=== PATIENT | female | born 1965 | race Caucasian/White ===

== ENCOUNTER 2016-04-05 12:24 | Emergency (ER) | payer OTHER ==
[~2016-04-05] VITALS: Ht 167.6 cm; Wt 68.2 kg
[~2016-04-05 12:24] MED LIST: ACET325T51 PO; ALBU8.5H2 INHALATION; BUSP7.5T5 PO; CLON0.5T PO; ESTR42.52 VG; FLUT9.9S NS; FOLI1TAB18 PO; GABA800T2 PO; HYDR-656 PO; HYDR15SO8 PO; IPRA4AER IH; LEVO750T39 PO; MIRA25TA PO; PANT40TA3 PO; PARO20TA57 PO; PRE20 PO
[2016-04-05 12:26] VITALS: BP 96/63; PULSE 89; RESP 20; O2SAT 95
--- NOTE | 2016-04-05 12:35 | ED.REPORT ---
HPI-Overdose/Alcohol Tox Peds Date of Service Apr 05, 2016 ED Provider: Catrachito Cho MD Pt is a 50 year old female with a hx of depression and anxiety presenting to the ED requesting to go to [facility]. She reports that she had 3 alcoholic beverages consisting of vodka today, and last drank 1 hour ago. She states that she usually drinks 3 alcoholic beverages per day. She denies previous DTs, but does report some withdrawal symptoms in the past. She denies any suicidal or homicidal ideation. Nursing Notes Stated Complaint: ALCOHOL DETOX Chief Complaint: Substance Abuse Nursing Notes Reviewed: Yes Allergies: Coded Allergies: shellfish derived (Verified Allergy, Mild, 04/05/16) Scheduled Albuterol HFA (Proair HFA) 8.5 Gm Hfa.aer.ad 2 PUFFS INHALATION Q4H Albuterol/Ipratropium (Combivent Respimat Inhal [place]) 120 Spr/4 Gm Inhaler 1 PUFF IH QID Buspirone (Buspirone) 7.5 Mg Tablet 7.5 MG PO DAILY Estradiol (Estrace) 42.5 Gm Cream.appl 1 G VG UD Folic Acid (Folic Acid) 1 Mg Tablet 1 MG PO DAILY Gabapentin (Gabapentin) 800 Mg Tablet 800 MG PO TID Imipramine HCl (Imipramine HCl) 25 Mg Tab 25 MG PO BID Mirabegron ER (Myrbetriq) 25 Mg Tablet 25 MG PO DAILY Pantoprazole DR (Pantoprazole DR) 40 Mg Tablet.dr 40 MG PO DAILY Paroxetine (Paxil) 20 Mg Tablet 40 MG PO MORNING Trazodone (Trazodone) 50 Mg Tablet 50-100 MG PO HS Venlafaxine ER (Venlafaxine ER) 75 Mg Cap.er.24h 75 MG PO MORNING Scheduled PRN Acetaminophen (Acetaminophen) 325 Mg Tablet 325 MG PO Q4H PRN PRN For Fever Clonazepam (Clonazepam) 1 Mg Tablet 1.5 MG PO BID PRN PRN For Anxiety Miscellaneous Medications Fluticasone Propionate (Flonase Allergy Relief) 50 Mcg/Actuation [place].susp 9.9 ML NS General Time Seen by Provider: 12:44 Chief Complaint Other (Requesting Detox) Hx Obtained from: Patient Arrived by: Walk-in Onset Occurred: Just prior to arrival Symptom Duration: Since onset Severity: Current: No pain currently Severity: Maximum: No pain Related History: Reports: Alcoholism, Anxiety, Depression, Detox treatment, EtOH withdrawal Recent Healthcare: No recent doctor visit, No recent hospitalization Similar Sx Previous: No Risk-Overdose/Alcohol Tox Peds )( Suicide Risk Stratification : Alcohol use: Substance abuse RF Statements: Risk factors reviewed Past Medical History Past Medical History Alcohol abuse, 3 drinks per day Anxiety Reports: Depression Past Surgical History denies Smoking History Current Every Day Smoker Ambulatory Status Ambulatory Status: Independent Review of Systems Respiratory: Denies: Irregular breathing, Non-productive cough, Shortness of breath, Wheezing GI: Denies: Vomiting Psychiatric: Denies: Homicidal ideation, Suicidal ideation Complete sys rev & neg: except as marked. Physical Exam Initial Vital Signs Vital Signs (First) Date Time Temp Pulse Resp B/P Pulse Ox O2 Delivery O2 Flow Rate FiO2 04/05/16 12:26 36.3 89 20 96/63 95 04/05/16 15:36 Room Air Initial VS: Reviewed Head / Eyes: Atraumatic, Normocephalic, PERRL ENT: Mucous membranes moist, Conjunctiva normal, No scleral icterus Extremities: Vascular intact, Neuro intact, No swelling, No tenderness Skin: Warm, Dry, No cyanosis General / Constitutional: Awake, Alert, No apparent distress, Well appearing, Well developed, Well hydrated, Well nourished Respiratory / Chest: Atraumatic, Breath sounds NL, Breath sounds = bilat, No respiratory distress, No grunting, No rales, No rhonchi, No wheezing Abdomen: Soft, Non-tender, No guarding, No rebound, BS normoactive, No distention Neurologic: Orientation NL for age, Speech NL for age, No motor deficits, No sensory deficits Psychiatric: Not suicidal, Not homicidal Lower Extremity / Pelvis / MS: No edema Interpretation & Diagnostics Lab Results Interpretation Test 04/05/16 14:18 Hold Urine Received (Received) Re-Eval/Medical Decision Med Decision/Clinical Course 50-year-old female history of alcohol abuse presenting requesting crisis respite. Last alcohol earlier today. Her breathalyzer is 140. Her urine tox is positive for marijuana, tricyclic antidepressants. She has no history of withdrawal seizures or DTs. She does have a history of alcohol withdrawal. She has been medically cleared for crisis respite. She was transferred to their facility. She was given an Ativan taper. Return precautions given. Re-Evaluation/Progress : Time of Eval: 15:00 Patient Status: Condition improved Re-Evaluation/Progress Note: Discussed plan for discharge and follow up with Crisis. Pt understands and agrees. Counseled Regarding: Diagnosis, Lab results, Need for follow-up, When/why to return to ED Discharge & Departure Clinical Impression Primary Impression: Alcohol abuse Disposition: Home Discharge Condition All VS Reviewed: Yes Condition: Improved Additional Instructions: You have been accepted at [facility] and have been sent home with Ativan. Taper to decrease your risk of withdrawal symptoms. Return to the ER with any new or worsening symptoms such as withdrawal seizures or delirium. Referrals: MALIK FARFAN DO (PCP) Scribe Attestation Portions of this note were transcribed by Hedy. I, Dr. Cho personally performed the history, physical exam and medical decision-making; I reviewed and confirmed the accuracy of the information in the transcribed note. Signed by: Louis Babb, 04/05/2016 and [id number]. copies to: MALIK FARFAN Ben M MD Apr 05, 2016 12:35 HEDY SULTANA Apr 05, 2016 12:46
[2016-04-05] MEDS ORDERED: _LORazepam 2 MG Tablet PO SCH (13:15)
[2016-04-05] MEDS ORDERED: TRAZ-115 PO (14:16)
[2016-04-05] MEDS ORDERED: KLO1T PO (14:16)
[2016-04-05] MEDS ORDERED: IMP25T PO (14:16)
[2016-04-05] MEDS ORDERED: VENL75CA95 PO (14:18)
[2016-04-05 15:36] VITALS: BP 81/56; PULSE 101; O2SAT 97
== END 2016-04-05 15:38 | disposition home or self-care (01) ==
LOC: SED 12:24
DX: F10.129 Alcohol abuse with intoxication, unspecified (principal); F17.200 Nicotine dependence, unspecified, uncomplicated; Z91.013 Allergy to seafood

== ENCOUNTER 2016-04-17 20:35 | Emergency (ER) | payer OTHER ==
[~2016-04-17] VITALS: Ht 167.6 cm; Wt 70.5 kg
[~2016-04-17 20:35] MED LIST changes: -CLON0.5T PO; -HYDR-656 PO; -HYDR15SO8 PO; +IMP25T PO; +KLO1T PO; -LEVO750T39 PO; -PRE20 PO; +TRAZ-115 PO; +VENL75CA95 PO
[2016-04-17 20:52] VITALS: BP 112/67; PULSE 92; RESP 16; O2SAT 97
--- NOTE | 2016-04-17 21:10 | ED.REPORT ---
HPI-General Illness Date of Service Apr 17, 2016 ED Provider: Dr. Ming Butler D.O. A 50 year old female with a history of COPD, depression, anxiety, and alcohol abuse presents to the ED requesting medical clearance for [facility]. The patient has a bed at [facility] at 0100 and requests medication to help with alcohol withdrawal. She denies visual or auditory hallucinations. The patient has not been eating regular meals. Her last alcoholic drink was vodka was this afternoon. She was in the ED 1.5 weeks ago with a similar request. Nursing Notes Stated Complaint: MEDICAL CLEARANCE FOR CRISIS CENTER Chief Complaint: Substance Abuse Nursing Notes Reviewed: Yes Allergies: Coded Allergies: shellfish derived (Verified Allergy, Mild, 04/17/16) Scheduled Albuterol HFA (Proair HFA) 8.5 Gm Hfa.aer.ad 2 PUFFS INHALATION Q4H Albuterol/Ipratropium (Combivent Respimat Inhal [place]) 120 Spr/4 Gm Inhaler 1 PUFF IH QID Buspirone (Buspirone) 7.5 Mg Tablet 7.5 MG PO DAILY Estradiol (Estrace) 42.5 Gm Cream.appl 1 G VG UD Folic Acid (Folic Acid) 1 Mg Tablet 1 MG PO DAILY Gabapentin (Gabapentin) 800 Mg Tablet 800 MG PO TID Imipramine HCl (Imipramine HCl) 25 Mg Tab 25 MG PO BID Mirabegron ER (Myrbetriq) 25 Mg Tablet 25 MG PO DAILY Pantoprazole DR (Pantoprazole DR) 40 Mg Tablet.dr 40 MG PO DAILY Paroxetine (Paxil) 20 Mg Tablet 40 MG PO MORNING Trazodone (Trazodone) 50 Mg Tablet 50-100 MG PO HS Venlafaxine ER (Venlafaxine ER) 75 Mg Cap.er.24h 75 MG PO MORNING Scheduled PRN Acetaminophen (Acetaminophen) 325 Mg Tablet 325 MG PO Q4H PRN PRN For Fever Clonazepam (Clonazepam) 1 Mg Tablet 1.5 MG PO BID PRN PRN For Anxiety Miscellaneous Medications Fluticasone Propionate (Flonase Allergy Relief) 50 Mcg/Actuation [place].susp 9.9 ML NS General Time Seen by MD: 21:10 Chief Complaint Other (Medical Clearance for Detox) Hx Obtained From: Patient Arrived By: Walk-in Sudden in Onset?: No Onset Occurred: Onset unknown Context of Onset: EtOH use Symptom Duration: Since onset Severity: Current: No pain currently Severity: Maximum: No pain Associated with: Denies: Fever Pertinent Negative: Relieved by nothing Context Related History: Reports COPD, Reports Psychiatric history Recent Healthcare: Recent doctor visit Similar Sx Previous: Yes Past Medical History Past Medical History Anxiety Depression Alcohol abuse Reports: COPD Past Surgical History Reports: Cholecystectomy, Hysterectomy Reports: Gastric bypass Smoking History Current Every Day Smoker Social History Alcohol abuse Drug Use: Denies drug use Ambulatory Status Independent Review of Systems + Request for Detox Medical Clearance, loss of appetite Full Review of Systems Constitutional: Denies: Fever Respiratory: Denies: Non-productive cough, Shortness of breath GI: Denies: Diarrhea, Vomiting Psychiatric: Denies: Hallucinations, auditory, Hallucinations, visual Complete sys rev & neg: except as marked. Physical Exam Vital Signs Vital Signs Date Time Temp Pulse Resp B/P Pulse Ox O2 Delivery O2 Flow Rate FiO2 04/17/16 20:52 37.1 92 16 112/67 97 Room Air Initial VS: Reviewed Head / Eyes: Atraumatic, Normocephalic Neck: Supple, Full range of motion Respiratory: Breath sounds normal, Clear to auscultation, No respiratory distress Cardiovascular: Regular rate & rhythm, Heart sounds normal Abdomen / GI: Soft, Non-tender Skin: Warm, Dry General/Constitutional: Awake, Alert Head / Eyes: Atraumatic, Normocephalic, EOMI Neurologic: Oriented X3, Speech NL Movement Abnormality: Positive: Tremor (Mild, fingertips) Psychiatric: Affect NL, Mood NL, No hallucinations Re-Eval/Medical Decision Source of Hx: Old records Time of Eval: 21:28 Patient Status: Condition improved Re-Evaluation/Progress Note: Discussed with patient diagnosis and plan for discharge to sobering services. Follow-up and return to the ER instructions given. Patient agrees with plan for care and all questions were addressed. Counseled Regarding: Diagnosis, Need for follow-up, When/why to return to ED Discharge & Departure Primary Impression: Alcohol abuse Disposition: Home Discharge Condition All VS Reviewed: Yes Condition: Stable Patient Instructions: Abuse of Alcohol (ED) Additional Instructions: Thank you for entrusting us with your care. Proceed straight to sobering services. Use the Ativan taper as directed. Never drink alcohol while taking Ativan. Call your primary care provider tomorrow for a follow-up appointment. Attend Alcoholics Anonymous. Return to the ER with any new or worsening symptoms. Referrals: MALIK FARFAN DO (PCP) Alcoholics Anonymous (AA) Louis Attestation Portions of this note were transcribed by Kaya Rendon. I, Dr. Butler, personally performed the history, physical exam, and medical decision-making; I reviewed and confirmed the accuracy of the information in the transcribed note. Signed by: Louis Cantrell, 04/17/2016, 21:32 copies to: MALIK FARFAN DO ; Alcoholics Anonymous (AA) Ming Butler DO Apr 17, 2016 21:10 KAYA RENDON Apr 17, 2016 21:27 KAYA RENDON Apr 17, 2016 21:27
[2016-04-17] MEDS ORDERED: _LORazepam 2 MG Tablet PO SCH (21:30)
== END 2016-04-18 00:14 | disposition other institution (70) ==
LOC: SED 20:35
DX: F10.230 Alcohol dependence with withdrawal, uncomplicated (principal); J44.9 Chronic obstructive pulmonary disease, unspecified; F32.9 Major depressive disorder, single episode, unspecified; F41.9 Anxiety disorder, unspecified; F17.200 Nicotine dependence, unspecified, uncomplicated; Z98.84 Bariatric surgery status